=== PATIENT | male | born 1970 | race American Indian/Alaskan Native ===

== ENCOUNTER 2017-03-12 20:59 | Emergency (ER) | payer SELFPAY ==
[2017-03-12] MEDS ORDERED: ZOFRAN IM ONE (21:25)
[2017-03-12] MEDS ORDERED: TORADOL IM ONE (21:26)
[2017-03-12] MEDS ORDERED: ASPIRIN PO ONE (21:26)
[2017-03-12 22:26] LABS: Basophils % (Auto) 0.3 % (0.0-1.8); Eosinophils # (Auto) 0.1 K/mm3 (0.0-0.4); Eosinophils % (Auto) 0.8 % (0.0-4.3); Hematocrit 45.2 % (35.5-45.6); Hemoglobin 15.5 gm/dl (11.8-15.2); Lymphocytes # (Auto) 0.4 K/mm3 (1.2-5.4); Lymphocytes % (Auto) 3.4 % (13.4-35.0); Mean Corpuscular HGB Conc 34 % (32-34); Mean Corpuscular Hemoglobin 32 pg (28-32); Mean Corpuscular Volume 92 fl (84-94); Monocytes # (Auto) 0.6 K/mm3 (0.0-0.8); Monocytes % (Auto) 5.8 % (0.0-7.3); Platelet Count 220 K/mm3 (140-440); Red Cell Distribution Width 12.6 % (13.2-15.2)
[2017-03-12 22:40] LABS: BUN/Creatinine Ratio 14; Blood Urea Nitrogen 13 mg/dL (9-20); Hemolysis Index 7
--- NOTE | 2017-03-13 09:45 | XRay Report ---
ROUTINE CHEST, TWO VIEWS: HISTORY: chest pain. The trachea, heart, mediastinal contour, lung neves and bony thorax are unremarkable. IMPRESSION: Unremarkable chest x-ray.
--- NOTE | 2017-03-13 09:56 | Emergency Department Report ---
Chief Complaint: Chest Pain Stated Complaint: FLU SYMPTOMS,CHEST PAIN Time Seen by Provider: 03/13/17 09:43 - HPI History of Present Illness: 46-year-old male presents with complaint of body aches that include his chest hurting, joints hurting and when he arrived to the emergency Department he also developed some nausea and vomiting. He describes all this as "maybe I got the flu." He was dropped off to be seen today. He denies any past medical history. He is a tobacco smoker but denies any illicit drug use. He did not take anything for her symptoms at presentation. He does not have a primary care physician. No family history of any cardiac disease. - ROS Review of Systems: Review of systems: Patient is positive for joint pains, chest pain, subjective fever, nausea/ vomiting Patient is negative for shortness of breath, lower actually swelling, palpitations, headache, diaphoresis - Exam Vital Signs: Vital Signs 03/12/17 03/12/17 21:07 21:16 Temperature 98.6 F 98.6 F Pulse Rate 88 70 Respiratory 18 20 Rate Blood Pressure 125/74 125/74 O2 Sat by Pulse 98 98 Oximetry MSE screening note: Focused history and physical exam performed. Due to findings the following was ordered: ED Medical Decision Making - Lab Data Result diagrams: 03/12/17 22:06 03/12/17 22:06 ED Disposition for MSE Condition: Stable Referrals: DANIELLA MARSH MD [Primary Care Provider] - 3-5 Days
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
[2017-03-13 11:26] VITALS: BP 110/51
== END 2017-03-13 11:26 | disposition home or self-care (01) ==
LOC: ED 20:59
DX: B34.9 Viral infection, unspecified (principal); M79.1 Myalgia; R07.89 Other chest pain; R11.2 Nausea with vomiting, unspecified; F17.200 Nicotine dependence, unspecified, uncomplicated; F12.10 Cannabis abuse, uncomplicated
CPT/HCPCS: 36415; 71046; 80048; 84484; 85025; 87400; 93005; 93010; 96372; 99284; J1885; J2405